=== PATIENT | female | born 1955 | race Caucasian/White ===

== ENCOUNTER → 2019-05-01 | Day surgery (SDC) | payer BC ==
[~2019-05-01] MED LIST: Oxymetazoline HCl 0.05% ( 15 ML ) ONE
== END ==
LOC: ENDO/OP 07:40
PROVIDERS: ATTEND Internal Medicine Gastroenterology
DX: R13.19 Other dysphagia (principal); K22.4 Dyskinesia of esophagus; K59.09 Other constipation; Z88.0 Allergy status to penicillin; Z88.2 Allergy status to sulfonamides; Z88.5 Allergy status to narcotic agent; Z88.8 Allergy status to other drugs, medicaments and biological substances
CPT/HCPCS: 91010

== ENCOUNTER 2019-06-25 16:11 | Outpatient (CLI) | payer BC ==
[2019-06-25 17:45] LABS: #Basophils 0.1 thou/uL (0.0-0.2); #Eosinphils 0.2 thou/uL (0.0-0.7); #Lymphocytes 3.2 thou/uL (1.20-3.40); #Monocytes 0.4 thou/uL (0.11-0.59); #Neutrophils 3.7 thou/uL (1.40-6.50); %Eosinophils 3.2 % (0.0-10.0); %Lymphocytes 42.2 % (21.0-51.0); %Monocytes 4.9 % (0.0-10.0); %Neutrophils 48.7 % (42.0-75.0); Hemoglobin 11.7 g/dL (12.0-16.0); Mean Corpuscular HGB CONC 34.3 g/dL (32.0-36.0); Mean Corpuscular Hemoglobin 31.9 pg (27.0-31.0); Platelet Count 212 thou/uL (130-400); RBC Distribution Width 10.9 % (11.5-14.5); Red Blood Cell (RBC) Count 3.68 mill/uL (4.20-5.40); White Blood Cell (WBC) Count 7.6 thou/uL (4.8-10.8)
[2019-06-25 18:06] LABS: Bacteria/HPF None Seen HPF (None Seen); Bilirubin Negative (Negative); Blood, Urine 1+ (Negative); Clarity Clear (Clear); Glucose, Urine (Dipstick) Normal (Negative); Leukocyte Negative Leu/uL (Negative); Nitrite Negative (Negative); Protein, Urine (Dipstick) Negative (Neg-Trace); RBC/HPF 0-3 HPF (0-3); Squamous Epithelial 0-3 HPF (0-3); Urobilinogen Normal mg/dL (Less than 2); WBC/HPF 0-3 HPF (0-3)
[2019-06-25 18:14] LABS: Anion Gap 8 mmol/L (10-20); BUN (Urea Nitrogen) 13 mg/dL (9.8-20.1); Calc. Creatinine Clearance 0 mL/min (70-130); Calcium 9.2 mg/dL (7.8-10.44); Carbon Dioxide 28 mmol/L (23-31); Chloride 105 mmol/L (98-107); Estimated GFR-MDRD 71; Glucose 118 mg/dL (80-115); Potassium 3.9 mmol/L (3.5-5.1); Sodium 137 mmol/L (136-145)
--- NOTE | 2019-06-27 17:45 | EKG ---
Test Reason : Blood Pressure : / mmHG Vent. Rate : 061 BPM Atrial Rate : 061 BPM P-R Int : 146 ms QRS Dur : 082 ms QT Int : 422 ms P-R-T Axes : 054 047 033 degrees QTc Int : 424 ms Normal sinus rhythm Cannot rule out Anterior infarct , age undetermined Abnormal ECG No previous ECGs available Confirmed by Tory GERMAN ([id number]) on 06/27/2019 5:45:24 PM Referred By: TRACE Confirmed By:Tory GERMAN
== END 2019-06-25 16:12 | disposition home or self-care (01) ==
LOC: LABBT 16:11
PROVIDERS: ATTEND Orthopaedic Surgery Hand Surgery
DX: Z01.818 Encounter for other preprocedural examination (principal); M19.031 Primary osteoarthritis, right wrist
CPT/HCPCS: 80048; 81001; 85025; 93005; 93010

== ENCOUNTER 2019-06-27 06:12 | Observation (INO) | payer BC ==
[2019-06-25 16:35] VITALS: BMI 22.7
[2019-06-27] MEDS ORDERED: Fentanyl 100 MCG/2 ML VIAL ONE ×2 (07:55→08:12)
[2019-06-27] MEDS ORDERED: Midazolam HCl 2 mg/2 ml Vial ONE (07:55)
[2019-06-27] MEDS ORDERED: Bupivacaine PF 0.5% 30 ML VIAL ONE (08:18)
[2019-06-27] MEDS ORDERED: traMADol HCl 50 MG TAB PO PRN ×2 (08:19)
[2019-06-27] MEDS ORDERED: Ketorolac Tromethamine 30 MG/ML VIAL IVP PRN (08:19)
[2019-06-27] MEDS ORDERED: Ondansetron PF 4 MG/2 ML Vial IVP PRN (08:19)
[2019-06-27] MEDS ORDERED: Promethazine HCl 25 MG/ML VIAL IM PRN (08:19)
[2019-06-27] MEDS ORDERED: Zolpidem Tartrate 5 MG TAB PO PRN (08:19)
[2019-06-27] MEDS ORDERED: Ropivacaine 0.2% 550 ML 550 ML NERVE BLCK SCH (08:19)
[2019-06-27] MEDS ORDERED: Bacitracin Zinc Ointment 30 gm TUBE ONE (08:19)
[2019-06-27] MEDS ORDERED: Thrombin 5000 UNITS/5 ML VIAL ONE (08:19)
[2019-06-27] MEDS ORDERED: Sodium Chloride 0.9% 10 ML ONE (08:19)
[2019-06-27] MEDS ORDERED: HYDROcodone/Acetaminophen 10/325 mg Tablet PO PRN ×2 (08:19)
[2019-06-27] MEDS ORDERED: Fentanyl 100 MCG/2 ML VIAL IV PRN (08:20)
[2019-06-27] MEDS ORDERED: Clindamycin/D5W 600 mg/50 ml Premix Bag ONE (08:45)
[2019-06-27] MEDS ORDERED: diphenhydrAMINE 50 MG/ML VIAL ONE (10:20)
[2019-06-27] MEDS ORDERED: Ondansetron PF 4 MG/2 ML Vial ONE (10:20)
[2019-06-27] MEDS ORDERED: ePHEDrine/0.9% NaCl/PF SYRINGE 50 mg/10 ml ONE (10:20)
[2019-06-27] MEDS ORDERED: Lidocaine 1% PF 5 ML VIAL ONE (10:20)
[2019-06-27] MEDS ORDERED: Ropivacaine 0.2% HCl/PF (40 MG/20 ML VIAL) ONE (10:20)
[2019-06-27] MEDS ORDERED: PROPOFOL 200 MG/20 ML VIAL ONE (10:20)
[2019-06-27] MEDS ORDERED: Ropivacaine 0.5% HCl/PF (150 MG/30 ML VIAL) ONE (10:20)
[2019-06-27] MEDS ORDERED: Dexamethasone 20 MG/5 ML VIAL ONE (10:20)
[2019-06-27] MEDS ORDERED: Morphine 2 MG/ML SYRINGE SLOW IVP PRN (12:24)
[2019-06-27] MEDS ORDERED: Milk Of Magnesia 30 ML UDCUP PO PRN (12:24)
[2019-06-27] MEDS ORDERED: Bisacodyl 10 MG SUPP PR PRN (12:24)
[2019-06-27] MEDS ORDERED: Ondansetron PF 4 MG/2 ML Vial IV PRN (12:24)
[2019-06-27] MEDS ORDERED: HYDROcodone/Acetaminophen 5/325 mg Tablet PO PRN (12:24)
[2019-06-27] MEDS ORDERED: TETANUS AND DIPHTHERIA TOX/PF 0.5 ML DISP.SYRIN IM SCH (12:30)
[2019-06-27] MEDS ORDERED: Meperidine HCl/PF 25 MG/ML VIAL IM PRN (12:32)
[2019-06-27] MEDS ORDERED: Clindamycin 6 MG/ML (PEDI) IVPB SCH (14:00)
--- NOTE | 2019-06-27 15:10 | RAD ---
EXAM: 3 views of the right wrist HISTORY: Wrist pain COMPARISON: None FINDINGS\IMPRESSION: 3 limited intraoperative views of the right wrist shows the patient ongoing surg abiola to the carpal bones. Multiple K wires are seen.
[2019-06-27] MEDS: Clindamycin/D5W 600 MG in Premix Bag 1 BAG IVPB SCH ×2 (15:19→20:21)
[2019-06-27] MEDS: ALPRAZolam 0.5 MG TAB PO PRN ×2 (16:08→22:01)
[2019-06-27] MEDS: Sodium Chloride 0.9% 1,000 ML IV SCH ×2 (17:36→23:30)
--- NOTE | 2019-06-27 20:08 | OP ---
DATE OF PROCEDURE: 06/27/2019 PREOPERATIVE DIAGNOSIS: Scaphotrapezium severe arthritis, right scaphotrapezial joint, right wrist. POSTOPERATIVE DIAGNOSIS: Scaphotrapezium severe arthritis, right scaphotrapezial joint, right wrist. FINDINGS: As follows. 1. Nearly 100% loss of cortical substance on the distal end of the scaphoid. 2. 70% loss at the base of the trapezium. 3. Approximately 50% loss of chondral surface down to inebriated bone at the trapezoid surface. PROCEDURES PERFORMED: 1. Scaphotrapezoid trapezium arthrodesis. 2. Sawyer of distal radius bone from just proximal to the Dakota's tubercle, same incision. 3. C-arm supervision. 4. Bone graft from cadaver, she did not have enough bone, age greater than 60, to fill up the decorticated joint surfaces. DESCRIPTION OF PROCEDURE: After successful general endotracheal anesthesia, the limb was prepped and draped. We made initially a transverse incision, but noticed that we had difficulty with visualization, so we extended it into a Anmol type incision instead of having 2 transverse incision. Identified superficial radial nerve, radial artery branch, protected them. We released the distal 5 mm of the extensor pollicis longus within the retinaculum and the sheath. the ECRL and the ECRB and entered the interval between them too. We released the capsule in a T-shape, and peeled it back on with a [place] blade all the way until we had approximately 1 cm of scaphoid and 6 mm of the entire dorsal portion of the trapezium and trapezoid exposed. The chondral loss was as described "findings above," and were indicative of probable pain generator for her diffuse pain. She never had any evidence of styloid impingement or styloid arthritis, so we did not do radial styloidectomy. We began with [place] blade to remove the chondral surface. After placing three K-wires, one each bone, identified with C-arm as being the scaphotrapezial trapezoid joint. We then decorticated first with a rongeur on the dorsal surface of these bones back to the depth as described above away from the joint. We then placed a saw and removed the distal 2 mm of the scaphoid, used the same saw, and removed 1 mm subchondral bone, trapezoid, and trapezium. We then began to use curette until we had reached all way especially down volar to complete cancellous bone exposure. Same was done using a [place] blade and curette in the trapezium or trapezoid interspace. Once this was done, we then placed the scaphoid appropriate approximately 45 to 50 degrees dorsiflexion with the wrist in approximately 60 degrees dorsiflexion, placed a preliminary K-wire from the trapezoid into the scaphoid in the frontal sagittal plane, maintained approximately 5 mm with between the trapezoid/trapezium and scaphoid. We then preliminarily placed wires in the trapezium and a second in the trapezoid and then prepared to harvest bone graft. To the very base of our incision, we selected a 1 cm long ellipse by 6 mm at its widest, saved the bone as a window and then began to curette. We could only get a proximal half a teaspoon of bone, which would not be enough for complete fusion, so we had to use normal saline soaked cancellous chips completely crushed to fill in the joint. We began volar ulna and worked our way all the way to the volar radial aspect and then central and then dorsal. Once we placed the dorsal bone in, we then passed the last three K-wires, which would be the second one in the trapezoid, the one in trapezium, and the trapezial trapezoid. Then, we placed the fusion bone mass over the dorsal decorticated portion of the trapezium, trapezoid, and scaphoid back to a depth of almost 7 mm on the scaphoid and 5 mm on the trapezium and trapezoid. The fusion mass moved together with no gross motion seen here, there was some bone graft that had escaped slightly radially and palmarly. We brought this back into the area, so we visualized from the radial aspect. We did not see any gaps in the fusion mass. The patient was prepared for wound closure and we released the tourniquet. We reapproximated a small portion of the capsule with 2-0 Vicryl. We closed the 5 mm retinaculum opened with extensor pollicis longus with the same Vicryl. Hemostasis was obtained. We had a running subcutaneous 4-0 Monocryl for dermal closure and epidermis was approximated with Steri-Strips and Mastisol. A block had been given, so no injection was given. Bulky dressing was applied and a thumb spica sugar-tong was applied. She left the operating room with pink digits and no evidence of anesthetic or operative complication. Job ID: [id number]
[2019-06-27] MEDS: Acetaminophen 325 MG TAB PO PRN (23:28)
[2019-06-28] MEDS: Clindamycin/D5W 600 MG in Premix Bag 1 BAG IVPB SCH ×2 (03:18→08:37)
[2019-06-28] MEDS ORDERED: Levothyroxine Sodium 88 MCG TAB PO SCH (06:00)
[2019-06-28 07:22] VITALS: BP 103/64; TEMP 97.8
[2019-06-28 07:49] LABS: Band 6 % (5-11); Hemoglobin 10.9 g/dL (12.0-16.0); Lymphocytes 7 % (21-51); MDiff Complete? YES; Mean Corpuscular HGB CONC 34.1 g/dL (32.0-36.0); Mean Corpuscular Hemoglobin 31.8 pg (27.0-31.0); Mean Corpuscular Volume 93.3 fL (78.0-98.0); Mean Platelet Volume 8.2 fL (7.4-10.4); Monocytes 2 % (0-10); Neutrophil 85 % (42-75); Platelet Count 199 thou/uL (130-400); Red Blood Cell (RBC) Count 3.44 mill/uL (4.20-5.40); White Blood Cell (WBC) Count 22.5 thou/uL (4.8-10.8)
[2019-06-28] MEDS: Acetaminophen 325 MG TAB PO PRN (11:02)
== END 2019-06-28 12:50 | disposition home or self-care (01) ==
LOC: SDC 06:12 → SJJU 13:12
PROVIDERS: ADMIT Orthopaedic Surgery Hand Surgery; ATTEND Orthopaedic Surgery Hand Surgery
PROC: 0RGN07Z Fusion of Right Wrist Joint with Autologous Tissue Substitute, Open Approach (ICD-10-PCS; 2019-06-27)
PROC: 0RGN04Z Fusion of Right Wrist Joint with Internal Fixation Device, Open Approach (ICD-10-PCS; 2019-06-27)
PROC: 3E0T3BZ Introduction of Anesthetic Agent into Peripheral Nerves and Plexi, Percutaneous Approach (ICD-10-PCS; principal; 2019-06-28)
DX: M19.031 Primary osteoarthritis, right wrist (principal); G89.18 Other acute postprocedural pain; E03.9 Hypothyroidism, unspecified; F41.9 Anxiety disorder, unspecified; Z79.899 Other long term (current) drug therapy; Z88.0 Allergy status to penicillin; Z88.1 Allergy status to other antibiotic agents; Z88.8 Allergy status to other drugs, medicaments and biological substances
CPT/HCPCS: 36415; 76000; 85025; 96361; 96365; 96366; 96375; A4306; G0378; J1100; J1200; J1885; J2001; J2250; J2405; J2704; J2795; J3010; J3490; S0020

== ENCOUNTER 2019-09-26 12:03 | Day surgery (SDC) | payer BC ==
[2019-09-25 11:25] VITALS: BMI 22.7
[~2019-09-26 12:03] MED LIST changes: +EPHEDRINE 25 MG/5 ML SYRINGE ONE; +Glycopyrrolate 0.2 MG/ML 5 ML SYRINGE ONE; +Lidocaine 1% PF 5 ML VIAL ONE; +Ondansetron PF 4 MG/2 ML Vial ONE; -Oxymetazoline HCl 0.05% ( 15 ML ) ONE; +PROPOFOL 200 MG/20 ML VIAL ONE
[2019-09-26] MEDS ORDERED: Fentanyl 100 MCG/2 ML VIAL ONE ×2 (12:08→14:44)
[2019-09-26] MEDS ORDERED: Clindamycin/D5W 600 mg/50 ml Premix Bag ONE (12:37)
[2019-09-26] MEDS ORDERED: Thrombin 5000 UNITS/5 ML VIAL ONE (12:48)
[2019-09-26] MEDS ORDERED: Bupivacaine PF 0.5% 30 ML VIAL ONE (12:48)
[2019-09-26] MEDS ORDERED: Bacitracin Zinc Ointment 30 gm TUBE ONE (12:48)
[2019-09-26] MEDS ORDERED: Albuterol Sulfate HFA (OR ONLY) ONE (12:49)
[2019-09-26] MEDS ORDERED: Ketorolac Tromethamine 30 MG/ML VIAL ONE (14:14)
--- NOTE | 2019-09-26 14:14 | RAD ---
THREE VIEWS RIGHT WRIST: COMPARISON: 06/27/2019. HISTORY: Hardware removal from the right wrist. FINDINGS/IMPRESSION: Three views of the right wrist show removal of the previously seen K-wires in the carpal bones. No f racture or dislocation is appreciated on these limited fluoroscopic views. POS: [facility]
[2019-09-26] MEDS ORDERED: traMADol HCl 50 MG TAB ONE (16:39)
--- NOTE | 2019-09-26 17:24 | OP ---
DATE OF PROCEDURE: 09/26/2019 PREOPERATIVE DIAGNOSIS: Right scaphotrapeziotrapezoid fusion/arthrodesis painful deep wires x4. POSTOPERATIVE DIAGNOSIS: Right scaphotrapeziotrapezoid fusion/arthrodesis painful deep wires x4. FINDINGS: Wires removed, completely solid fusion. No movement was felt between the scaphotrapezoid and trapezio-trapezoid joints with the wires out. PROCEDURES PERFORMED: 1. C-arm supervision. 2. Removal of wires x4, all right scaphotrapeziotrapezoid (wrist). SPECIMEN SENT: Wires x4. TOURNIQUET TIME: 16 minutes. ESTIMATED BLOOD LOSS: 5 mL. INDICATIONS: The patient is now 3 months since scaphotrapeziotrapezoid fusion. Two wires become painful,one more might possibly be migrated and radiographs in clinic show solid fusion. The pain preoperatively in this region has gone. DESCRIPTION OF PROCEDURE: After successful general endotracheal anesthesia, the limb was prepped and draped. We then had the C-arm brought into the field. Time-out was done appropriately. Using C-arm, we identified the 2 deep painful wires, which could not be palpated. We made a 5 mm incision over each one and then dissected down below the extensor tendons. We removed them without complication. We turned to the dorsal wires between the trapezoid and scaphoid and these still were palpable, made a small 5 mm incision, dissected down to remove them and early bursa was forming. We irrigated the area. We deflated tourniquet and was 16 minutes time and obtained hemostasis. We closed the incision with interrupted 4-0 nylon in mattress pattern and the patient left the operating room with a thumb spica short splint and no evidence of anesthetic or operative complication. Job ID: [id number]
== END 2019-09-26 17:20 | disposition home or self-care (01) ==
LOC: SDC 12:03
PROVIDERS: ATTEND Orthopaedic Surgery Hand Surgery
PROC: 0XP60YZ Removal of Other Device from Right Upper Extremity, Open Approach (ICD-10-PCS; principal; 2019-09-26)
DX: T84.84XA Pain due to internal orthopedic prosthetic devices, implants and grafts, initial encounter (principal); M19.031 Primary osteoarthritis, right wrist; F41.9 Anxiety disorder, unspecified; E03.9 Hypothyroidism, unspecified; Z79.899 Other long term (current) drug therapy; Z88.0 Allergy status to penicillin; Z88.1 Allergy status to other antibiotic agents; Z88.8 Allergy status to other drugs, medicaments and biological substances
CPT/HCPCS: 76000; J1885; J3010; J3490; S0020